=== PATIENT | female | born 1960 | race Hispanic/Latino ===

== ENCOUNTER 2020-09-16 11:53 | Inpatient (IN) | payer OTHER, SELFPAY ==
[2020-09-16] MEDS ORDERED: Fentanyl 100 MCG/2 ML VIAL ONE ×2 (12:06→16:44)
[2020-09-16 12:33] LABS: #Basophils 0.1 thou/uL (0.0-0.2); #Eosinphils 0.1 thou/uL (0.0-0.7); #Lymphocytes 2.3 thou/uL (1.20-3.40); #Monocytes 0.5 thou/uL (0.11-0.59); #Neutrophils 5.4 thou/uL (1.40-6.50); %Eosinophils 1.2 % (0.0-10.0); %Lymphocytes 27.5 % (21.0-51.0); %Monocytes 5.8 % (0.0-10.0); %Neutrophils 64.5 % (42.0-75.0); Hemoglobin 12.5 g/dL (12.0-16.0); Mean Corpuscular HGB CONC 32.4 g/dL (32.0-36.0); Mean Corpuscular Hemoglobin 29.4 pg (27.0-31.0); Mean Platelet Volume 7.2 fL (7.4-10.4); Platelet Count 314 thou/uL (130-400); Red Blood Cell (RBC) Count 4.23 mill/uL (4.20-5.40); White Blood Cell (WBC) Count 8.4 thou/uL (4.8-10.8)
[2020-09-16] MEDS ORDERED: Lorazepam 2 MG/ML VIAL ONE (12:39)
[2020-09-16 12:47] LABS: PTT 31.2 sec (22.9-36.1); Prothrombin Time 12.8 sec (12.0-14.7)
[2020-09-16 13:02] LABS: ALT (SGPT) 10 U/L (8-55); AST (SGOT) 18 U/L (5-34); Albumin 3.7 g/dL (3.5-5.0); Alkaline Phosphatase 108 U/L (40-110); Anion Gap 8 mmol/L (10-20); BUN (Urea Nitrogen) 20 mg/dL (9.8-20.1); Bilirubin, Total 0.2 mg/dL (0.2-1.2); Calc. Creatinine Clearance 0 mL/min (70-130); Calcium 9.6 mg/dL (7.8-10.44); Carbon Dioxide 28 mmol/L (22-29); Chloride 105 mmol/L (98-107); Globulin 3.4 g/dL (2.4-3.5); Glucose 140 mg/dL (70-105); Potassium 3.9 mmol/L (3.5-5.1); Protein, Total 7.1 g/dL (6.0-8.3); Sodium 137 mmol/L (136-145)
[2020-09-16] MEDS ORDERED: Ondansetron PF 4 MG/2 ML Vial IVP PRN (13:05)
[2020-09-16] MEDS ORDERED: Morphine 4 MG/ML VIAL SLOW IVP PRN (13:05)
[2020-09-16] MEDS ORDERED: Ondansetron ODT 4 MG TAB PO PRN (13:05)
[2020-09-16] MEDS ORDERED: CEFAZOLIN 2 GM in Premix Bag 1 BAG IVPB SCH (13:15)
[2020-09-16] MEDS ORDERED: Morphine 4 MG/ML VIAL ONE ×2 (13:20→14:01)
[2020-09-16 14:28] LABS: SARS-CoV-2 NAA Rapid Test Not Detected (NotDetected)
[2020-09-16 16:49] LABS: Bilirubin Negative (Negative); Blood, Urine Negative (Negative); Clarity Clear (Clear); Glucose, Urine (Dipstick) Normal (Negative); Ketone, Urine Negative (Negative); Leukocyte Negative Leu/uL (Negative); Nitrite Negative (Negative); Protein, Urine (Dipstick) Negative (Neg-Trace); Specific Gravity, Urine 1.019 (1.002-1.036); Urobilinogen Normal mg/dL (Less than 2); pH, Urine 6.5 (5.0-9.0)
[2020-09-16] MEDS ORDERED: Dexamethasone 20 MG/5 ML VIAL ONE (17:00)
[2020-09-16] MEDS ORDERED: Ondansetron PF 4 MG/2 ML Vial ONE (17:00)
[2020-09-16] MEDS ORDERED: Ketorolac Tromethamine 30 MG/ML VIAL ONE (17:00)
[2020-09-16] MEDS ORDERED: Lidocaine 1% PF 5 ML VIAL ONE (17:00)
[2020-09-16] MEDS ORDERED: PROPOFOL 200 MG/20 ML VIAL ONE (17:00)
[2020-09-16] MEDS ORDERED: Meperidine HCl/PF 25 MG/ML VIAL SLOW IVP PRN ×2 (18:14)
[2020-09-16] MEDS ORDERED: HYDROmorphone 2 MG/ML VIAL SLOW IVP PRN (18:14)
[2020-09-16] MEDS ORDERED: Promethazine HCl 25 MG/ML VIAL IM PRN (18:14)
[2020-09-16] MEDS ORDERED: Promethazine HCl 25 MG/ML VIAL IVPB PRN (18:14)
[2020-09-16] MEDS ORDERED: Ondansetron HCl/PF 4 MG/2 ML Vial IVP PRN (18:14)
[2020-09-16] MEDS ORDERED: Morphine Sulfate 2 MG/ML SYRINGE SLOW IVP PRN (18:14)
[2020-09-16] MEDS ORDERED: PACU-Morphine 4MG/ML VIAL SLOW IVP PRN (18:14)
[2020-09-16] MEDS ORDERED: Meperidine HCl/PF 25 MG/ML VIAL ONE (18:16)
[2020-09-16] MEDS ORDERED: HYDROmorphone 2 MG/ML VIAL ONE (18:17)
[2020-09-16] MEDS: Gabapentin 300 MG CAP PO SCH ×3 (20:09→20:42)
[2020-09-16] MEDS: Senokot S 8.6-50 MG TAB PO SCH (20:10)
[2020-09-16] MEDS: Sodium Chloride 0.9% 1,000 ML IV SCH ×2 (20:27→20:28)
[2020-09-16] MEDS: traMADol HCl 50 MG TAB PO SCH (20:41)
[2020-09-16] MEDS: Acetaminophen 500 MG TAB PO SCH (20:41)
[2020-09-16 20:51] VITALS: BMI 37.7
[2020-09-16] MEDS ORDERED: Famotidine/PF 20 mg/2ml Vial SLOW IVP SCH (21:00)
[2020-09-16] MEDS: CEFAZOLIN 2 GM in Premix Bag 1 BAG IVPB SCH (21:57)
[2020-09-17] MEDS: Acetaminophen 500 MG TAB PO SCH ×5 (00:21→23:43)
[2020-09-17] MEDS: traMADol HCl 50 MG TAB PO SCH ×5 (00:23→23:42)
[2020-09-17 04:20] LABS: #Lymphocytes 1.3 thou/uL (1.20-3.40); #Monocytes 0.3 thou/uL (0.11-0.59); #Neutrophils 5.8 thou/uL (1.40-6.50); %Basophils 0.3 % (0.0-1.0); %Eosinophils 0.1 % (0.0-10.0); %Lymphocytes 16.8 % (21.0-51.0); %Monocytes 4.2 % (0.0-10.0); %Neutrophils 78.6 % (42.0-75.0); Hemoglobin 10.6 g/dL (12.0-16.0); Mean Corpuscular HGB CONC 32.8 g/dL (32.0-36.0); Mean Corpuscular Hemoglobin 30.3 pg (27.0-31.0); Mean Corpuscular Volume 92.2 fL (78.0-98.0); Mean Platelet Volume 6.9 fL (7.4-10.4); Platelet Count 252 thou/uL (130-400); RBC Distribution Width 11.9 % (11.5-14.5); Red Blood Cell (RBC) Count 3.51 mill/uL (4.20-5.40); White Blood Cell (WBC) Count 7.4 thou/uL (4.8-10.8)
[2020-09-17 04:38] LABS: Anion Gap 10 mmol/L (10-20); BUN (Urea Nitrogen) 14 mg/dL (9.8-20.1); CK (CPK) 183 U/L (29-168); Calc. Creatinine Clearance 107 mL/min (70-130); Calcium 8.6 mg/dL (7.8-10.44); Carbon Dioxide 23 mmol/L (22-29); Chloride 109 mmol/L (98-107); Glucose 160 mg/dL (70-105); Magnesium 1.9 mg/dL (1.6-2.6); Potassium 4.4 mmol/L (3.5-5.1); Sodium 138 mmol/L (136-145)
[2020-09-17] MEDS: CEFAZOLIN 2 GM in Premix Bag 1 BAG IVPB SCH ×2 (05:56→14:33)
[2020-09-17] MEDS ORDERED: Magnesium 2 GM/50 ML 2 GM in Premix Bag 1 BAG IVPB SCH (09:00)
[2020-09-17] MEDS: Gabapentin 300 MG CAP PO SCH ×3 (09:41→21:32)
[2020-09-17] MEDS: Senokot S 8.6-50 MG TAB PO SCH ×2 (09:41→21:32)
[2020-09-17] MEDS: Famotidine 20 MG TAB PO SCH ×2 (09:41→21:41)
[2020-09-17] MEDS: Enoxaparin Sodium 40 MG/0.4 ML SYRINGE SC SCH (09:43)
[2020-09-17] MEDS: Polyethylene Glycol 3350 17 GM Packet PO SCH (09:46)
[2020-09-18] MEDS: Acetaminophen 500 MG TAB PO SCH ×2 (05:44→13:04)
[2020-09-18] MEDS: traMADol HCl 50 MG TAB PO SCH ×2 (05:45→13:05)
[2020-09-18] MEDS: Famotidine 20 MG TAB PO SCH ×2 (08:38→21:28)
[2020-09-18] MEDS: Polyethylene Glycol 3350 17 GM Packet PO SCH (08:38)
[2020-09-18] MEDS: Enoxaparin Sodium 40 MG/0.4 ML SYRINGE SC SCH (08:38)
[2020-09-18] MEDS: Senokot S 8.6-50 MG TAB PO SCH ×2 (08:38→21:28)
[2020-09-18] MEDS: Ibuprofen 600 MG TAB PO PRN ×2 (08:39→21:28)
[2020-09-18] MEDS: Gabapentin 300 MG CAP PO SCH (08:39)
[2020-09-18] MEDS ORDERED: traMADol HCl 50 MG TAB PO PRN (14:02)
[2020-09-18] MEDS ORDERED: Gabapentin 300 MG CAP PO SCH (15:00)
[2020-09-18] MEDS: Acetaminophen 500 MG TAB PO PRN (19:05)
[2020-09-18] MEDS: traMADol HCl 50 MG TAB PO PRN (19:06)
[2020-09-19] MEDS: Acetaminophen 500 MG TAB PO PRN (00:55)
[2020-09-19] MEDS: Polyethylene Glycol 3350 17 GM Packet PO SCH (08:32)
[2020-09-19] MEDS: Calcium Carbonate 600 MG + Vit D TAB PO SCH ×2 (08:32→16:39)
[2020-09-19] MEDS: Senokot S 8.6-50 MG TAB PO SCH ×2 (08:32→21:40)
[2020-09-19] MEDS: Enoxaparin Sodium 40 MG/0.4 ML SYRINGE SC SCH (08:32)
[2020-09-19] MEDS: Cyclobenzaprine 10 MG TAB PO PRN ×2 (09:29→21:40)
[2020-09-19] MEDS: Acetaminophen 500 MG TAB PO SCH ×3 (09:29→21:40)
[2020-09-19] MEDS: traMADol HCl 50 MG TAB PO SCH ×2 (11:26→17:51)
[2020-09-19] MEDS ORDERED: Calcium Carbonate 500 MG ChewTAB PO PRN (16:01)
[2020-09-20] MEDS: traMADol HCl 50 MG TAB PO SCH ×4 (02:33→19:01)
[2020-09-20] MEDS: Acetaminophen 500 MG TAB PO SCH ×4 (05:18→22:19)
[2020-09-20] MEDS: Ascorbic Acid 500 mg Chewable Tablet PO SCH ×2 (08:23→22:23)
[2020-09-20] MEDS: Calcium Carbonate 600 MG + Vit D TAB PO SCH ×2 (08:23→19:01)
[2020-09-20] MEDS: Senokot S 8.6-50 MG TAB PO SCH ×2 (08:23→22:23)
[2020-09-20] MEDS: Ferrous Sulfate 325 MG TAB PO SCH ×2 (08:23→19:01)
[2020-09-20] MEDS: Polyethylene Glycol 3350 17 GM Packet PO SCH (08:24)
[2020-09-20] MEDS: Enoxaparin Sodium 40 MG/0.4 ML SYRINGE SC SCH (08:24)
[2020-09-20] MEDS: traMADol HCl 50 MG TAB PO PRN (15:00)
[2020-09-20] MEDS: Ibuprofen 600 MG TAB PO PRN (15:02)
[2020-09-21] MEDS: traMADol HCl 50 MG TAB PO SCH ×4 (01:06→20:27)
[2020-09-21 05:10] LABS: #Eosinphils 0.4 thou/uL (0.0-0.7); #Lymphocytes 3.1 thou/uL (1.20-3.40); #Neutrophils 4.4 thou/uL (1.40-6.50); %Basophils 0.4 % (0.0-1.0); %Eosinophils 4.3 % (0.0-10.0); %Lymphocytes 34.6 % (21.0-51.0); %Neutrophils 49.7 % (42.0-75.0); Hemoglobin 10.3 g/dL (12.0-16.0); Mean Corpuscular Hemoglobin 29.5 pg (27.0-31.0); Platelet Count 316 thou/uL (130-400); RBC Distribution Width 12.6 % (11.5-14.5); Red Blood Cell (RBC) Count 3.51 mill/uL (4.20-5.40); White Blood Cell (WBC) Count 8.9 thou/uL (4.8-10.8)
[2020-09-21] MEDS: Acetaminophen 500 MG TAB PO SCH ×4 (05:16→22:38)
[2020-09-21 05:31] LABS: Anion Gap 9 mmol/L (10-20); BUN (Urea Nitrogen) 18 mg/dL (9.8-20.1); Calc. Creatinine Clearance 100 mL/min (70-130); Calcium 9.3 mg/dL (7.8-10.44); Carbon Dioxide 28 mmol/L (22-29); Chloride 104 mmol/L (98-107); Glucose 109 mg/dL (70-105); Phosphorus 3.8 mg/dL (2.3-4.7); Potassium 4.1 mmol/L (3.5-5.1); Sodium 137 mmol/L (136-145)
[2020-09-21] MEDS: Polyethylene Glycol 3350 17 GM Packet PO SCH (09:37)
[2020-09-21] MEDS: Ferrous Sulfate 325 MG TAB PO SCH ×2 (09:37→16:26)
[2020-09-21] MEDS: Enoxaparin Sodium 40 MG/0.4 ML SYRINGE SC SCH (09:37)
[2020-09-21] MEDS: Ascorbic Acid 500 mg Chewable Tablet PO SCH ×2 (09:37→20:39)
[2020-09-21] MEDS: Calcium Carbonate 600 MG + Vit D TAB PO SCH ×2 (09:37→16:26)
[2020-09-21] MEDS: Cholecalciferol (Vitamin D3) 400 UNITS TAB PO SCH (09:37)
[2020-09-21] MEDS: Senokot S 8.6-50 MG TAB PO SCH ×2 (09:37→22:39)
[2020-09-21] MEDS: Ibuprofen 600 MG TAB PO PRN (16:24)
[2020-09-21] MEDS: Melatonin 3 MG TAB PO SCH (20:39)
[2020-09-22] MEDS: traMADol HCl 50 MG TAB PO SCH ×4 (01:58→18:44)
[2020-09-22] MEDS: Acetaminophen 500 MG TAB PO SCH ×4 (04:12→22:30)
[2020-09-22] MEDS: Cholecalciferol (Vitamin D3) 400 UNITS TAB PO SCH (08:30)
[2020-09-22] MEDS: Ferrous Sulfate 325 MG TAB PO SCH ×3 (08:30→20:30)
[2020-09-22] MEDS: Ascorbic Acid 500 mg Chewable Tablet PO SCH ×2 (08:30→20:29)
[2020-09-22] MEDS: Calcium Carbonate 600 MG + Vit D TAB PO SCH ×2 (08:31→18:28)
[2020-09-22] MEDS: Enoxaparin Sodium 40 MG/0.4 ML SYRINGE SC SCH (08:31)
[2020-09-22] MEDS: Polyethylene Glycol 3350 17 GM Packet PO SCH (08:35)
[2020-09-22] MEDS: Senokot S 8.6-50 MG TAB PO SCH ×2 (08:36→22:30)
[2020-09-22] MEDS: Melatonin 3 MG TAB PO SCH (20:29)
[2020-09-23] MEDS: traMADol HCl 50 MG TAB PO SCH ×5 (00:36→23:30)
[2020-09-23] MEDS: Acetaminophen 500 MG TAB PO SCH ×4 (04:41→21:47)
[2020-09-23] MEDS: Cholecalciferol (Vitamin D3) 400 UNITS TAB PO SCH (08:12)
[2020-09-23] MEDS: Ascorbic Acid 500 mg Chewable Tablet PO SCH ×2 (08:12→21:49)
[2020-09-23] MEDS: Calcium Carbonate 600 MG + Vit D TAB PO SCH ×2 (08:13→17:17)
[2020-09-23] MEDS: Ferrous Sulfate 325 MG TAB PO SCH ×2 (08:13→21:49)
[2020-09-23] MEDS: Enoxaparin Sodium 40 MG/0.4 ML SYRINGE SC SCH (08:14)
[2020-09-23] MEDS: Senokot S 8.6-50 MG TAB PO SCH ×2 (09:54→21:50)
[2020-09-23] MEDS: Polyethylene Glycol 3350 17 GM Packet PO SCH (09:54)
[2020-09-23] MEDS: Melatonin 3 MG TAB PO SCH (21:50)
[2020-09-24] MEDS: traMADol HCl 50 MG TAB PO SCH ×3 (05:08→23:54)
[2020-09-24] MEDS: Acetaminophen 500 MG TAB PO SCH ×4 (05:08→20:32)
[2020-09-24] MEDS: Calcium Carbonate 600 MG + Vit D TAB PO SCH ×2 (10:43→17:52)
[2020-09-24] MEDS: Ascorbic Acid 500 mg Chewable Tablet PO SCH ×2 (10:44→20:32)
[2020-09-24] MEDS: Cholecalciferol (Vitamin D3) 400 UNITS TAB PO SCH (10:44)
[2020-09-24] MEDS: Polyethylene Glycol 3350 17 GM Packet PO SCH (10:45)
[2020-09-24] MEDS: Senokot S 8.6-50 MG TAB PO SCH ×2 (10:45→20:37)
[2020-09-24] MEDS: Ferrous Sulfate 325 MG TAB PO SCH ×2 (10:45→20:32)
[2020-09-24] MEDS: Enoxaparin Sodium 40 MG/0.4 ML SYRINGE SC SCH (10:45)
[2020-09-24] MEDS ORDERED: Fentanyl 100 MCG/2 ML VIAL ONE ×4 (11:37→15:52)
[2020-09-24] MEDS ORDERED: Midazolam HCl 2 mg/2 ml Vial ONE (11:37)
[2020-09-24] MEDS ORDERED: Lidocaine 1% PF 5 ML VIAL ONE (12:22)
[2020-09-24] MEDS ORDERED: Bupivacaine HCl 0.5%/Epinephrine 1:200,000/PF 30 ml Vial ONE (12:22)
[2020-09-24] MEDS ORDERED: Dexamethasone 20 MG/5 ML VIAL ONE (12:22)
[2020-09-24] MEDS ORDERED: Ketorolac Tromethamine 30 MG/ML VIAL ONE (12:22)
[2020-09-24] MEDS ORDERED: PROPOFOL 200 MG/20 ML VIAL ONE (12:22)
[2020-09-24] MEDS ORDERED: Ondansetron PF 4 MG/2 ML Vial ONE (12:22)
[2020-09-24] MEDS ORDERED: HYDROcodone/Acetaminophen 5/325 mg Tablet PO PRN ×3 (12:30→16:28)
[2020-09-24] MEDS ORDERED: Ondansetron PF 4 MG/2 ML Vial IVP PRN (12:30)
[2020-09-24] MEDS ORDERED: traMADol HCl 50 MG TAB PO PRN (12:30)
[2020-09-24] MEDS ORDERED: Ropivacaine 0.2% 550 ML 550 ML NERVE BLCK SCH (12:30)
[2020-09-24] MEDS ORDERED: Promethazine HCl 25 MG/ML VIAL IM PRN ×2 (12:30→15:08)
[2020-09-24] MEDS ORDERED: Zolpidem Tartrate 5 MG TAB PO PRN (12:30)
[2020-09-24] MEDS ORDERED: CEFAZOLIN 2 GM in Premix Bag 1 BAG IVPB SCH (15:00)
[2020-09-24] MEDS ORDERED: Promethazine HCl 25 MG/ML VIAL IVPB PRN (15:08)
[2020-09-24] MEDS ORDERED: HYDROmorphone 2 MG/ML VIAL SLOW IVP PRN (15:08)
[2020-09-24] MEDS: CEFAZOLIN 2 GM in Premix Bag 1 BAG IVPB SCH ×2 (15:38→21:24)
[2020-09-24] MEDS: traMADol HCl 50 MG TAB PO PRN (16:51)
[2020-09-24] MEDS: Cyclobenzaprine 10 MG TAB PO PRN (19:10)
[2020-09-24] MEDS ORDERED: Morphine 2 MG/ML VIAL SLOW IVP PRN (20:13)
[2020-09-24] MEDS ORDERED: Morphine 4 MG/ML VIAL ONE (20:20)
[2020-09-24] MEDS: Melatonin 3 MG TAB PO SCH (20:32)
[2020-09-24] MEDS ORDERED: Gabapentin 300 MG CAP PO SCH (21:00)
[2020-09-24] MEDS: Ibuprofen 200 MG TAB PO SCH (23:56)
[2020-09-25] MEDS: Acetaminophen 500 MG TAB PO SCH ×4 (03:14→20:27)
[2020-09-25] MEDS: Ibuprofen 200 MG TAB PO SCH ×4 (05:17→23:50)
[2020-09-25] MEDS: traMADol HCl 50 MG TAB PO SCH ×4 (05:17→23:50)
[2020-09-25 05:55] LABS: #Basophils 0.1 thou/uL (0.0-0.2); #Lymphocytes 1.9 thou/uL (1.20-3.40); #Monocytes 1.2 thou/uL (0.11-0.59); #Neutrophils 10.7 thou/uL (1.40-6.50); %Basophils 0.6 % (0.0-1.0); %Eosinophils 0.2 % (0.0-10.0); %Lymphocytes 13.4 % (21.0-51.0); %Monocytes 8.6 % (0.0-10.0); %Neutrophils 77.1 % (42.0-75.0); Hemoglobin 9.7 g/dL (12.0-16.0); Mean Corpuscular HGB CONC 32.3 g/dL (32.0-36.0); Mean Corpuscular Hemoglobin 29.2 pg (27.0-31.0); Mean Corpuscular Volume 90.4 fL (78.0-98.0); Mean Platelet Volume 6.7 fL (7.4-10.4); Platelet Count 386 thou/uL (130-400); RBC Distribution Width 12.3 % (11.5-14.5); Red Blood Cell (RBC) Count 3.32 mill/uL (4.20-5.40); White Blood Cell (WBC) Count 13.9 thou/uL (4.8-10.8)
[2020-09-25] MEDS ORDERED: Pantoprazole 40 MG GRANULES PACKET PO SCH (09:00)
[2020-09-25] MEDS ORDERED: Hydrocortisone Sod Succ/PF 100 mg/2 ml Vial IVP SCH (10:00)
[2020-09-25] MEDS: Calcium Carbonate 600 MG + Vit D TAB PO SCH ×2 (11:18→16:51)
[2020-09-25] MEDS: Ascorbic Acid 500 mg Chewable Tablet PO SCH ×2 (11:19→20:27)
[2020-09-25] MEDS: Cholecalciferol (Vitamin D3) 400 UNITS TAB PO SCH (11:19)
[2020-09-25] MEDS: Ferrous Sulfate 325 MG TAB PO SCH ×2 (11:19→20:45)
[2020-09-25] MEDS: Enoxaparin Sodium 40 MG/0.4 ML SYRINGE SC SCH (11:21)
[2020-09-25] MEDS: Pregabalin 50 MG CAP PO SCH ×2 (11:22→20:26)
[2020-09-25] MEDS: Senokot S 8.6-50 MG TAB PO SCH ×2 (11:23→20:45)
[2020-09-25] MEDS: Polyethylene Glycol 3350 17 GM Packet PO SCH (11:23)
[2020-09-25] MEDS: Hydrocortisone Sod Succ/PF 100 mg/2 ml Vial IVP SCH ×2 (11:24→18:35)
[2020-09-25] MEDS: traMADol HCl 50 MG TAB PO PRN (18:31)
[2020-09-25] MEDS: Melatonin 3 MG TAB PO SCH (20:27)
[2020-09-26] MEDS: Hydrocortisone Sod Succ/PF 100 mg/2 ml Vial IVP SCH ×3 (02:46→18:41)
[2020-09-26] MEDS: Acetaminophen 500 MG TAB PO SCH ×4 (02:49→22:05)
[2020-09-26] MEDS: Ibuprofen 200 MG TAB PO SCH (06:45)
[2020-09-26] MEDS: traMADol HCl 50 MG TAB PO SCH ×4 (06:45→23:49)
[2020-09-26] MEDS: Enoxaparin Sodium 40 MG/0.4 ML SYRINGE SC SCH (09:43)
[2020-09-26] MEDS: Ferrous Sulfate 325 MG TAB PO SCH ×2 (09:43→22:03)
[2020-09-26] MEDS: Pregabalin 50 MG CAP PO SCH ×2 (09:44→22:03)
[2020-09-26] MEDS: Ascorbic Acid 500 mg Chewable Tablet PO SCH ×2 (09:46→22:03)
[2020-09-26] MEDS: Calcium Carbonate 600 MG + Vit D TAB PO SCH ×2 (09:46→18:41)
[2020-09-26] MEDS: Cholecalciferol (Vitamin D3) 400 UNITS TAB PO SCH (09:47)
[2020-09-26] MEDS: Senokot S 8.6-50 MG TAB PO SCH ×2 (09:54→22:08)
[2020-09-26] MEDS: Polyethylene Glycol 3350 17 GM Packet PO SCH (09:54)
[2020-09-26] MEDS: traMADol HCl 50 MG TAB PO PRN (15:38)
[2020-09-26] MEDS: Melatonin 3 MG TAB PO SCH (22:05)
[2020-09-27] MEDS: Hydrocortisone Sod Succ/PF 100 mg/2 ml Vial IVP SCH ×3 (03:33→17:03)
[2020-09-27] MEDS: Acetaminophen 500 MG TAB PO SCH ×4 (03:37→20:39)
[2020-09-27] MEDS: traMADol HCl 50 MG TAB PO SCH ×3 (06:04→17:04)
[2020-09-27] MEDS: Calcium Carbonate 600 MG + Vit D TAB PO SCH ×2 (09:11→17:03)
[2020-09-27] MEDS: Pregabalin 50 MG CAP PO SCH ×2 (09:11→20:39)
[2020-09-27] MEDS: Ascorbic Acid 500 mg Chewable Tablet PO SCH ×2 (09:11→20:38)
[2020-09-27] MEDS: Cholecalciferol (Vitamin D3) 400 UNITS TAB PO SCH (09:11)
[2020-09-27] MEDS: Enoxaparin Sodium 40 MG/0.4 ML SYRINGE SC SCH (09:14)
[2020-09-27] MEDS: Ferrous Sulfate 325 MG TAB PO SCH ×2 (09:14→20:38)
[2020-09-27] MEDS: Senokot S 8.6-50 MG TAB PO SCH ×2 (09:14→20:40)
[2020-09-27] MEDS: Polyethylene Glycol 3350 17 GM Packet PO SCH (09:14)
[2020-09-27] MEDS: Melatonin 3 MG TAB PO SCH (20:37)
[2020-09-28] MEDS: traMADol HCl 50 MG TAB PO SCH ×5 (00:18→23:08)
[2020-09-28] MEDS: Hydrocortisone Sod Succ/PF 100 mg/2 ml Vial IVP SCH ×3 (02:13→17:59)
[2020-09-28] MEDS: Acetaminophen 500 MG TAB PO SCH ×4 (02:14→21:47)
[2020-09-28] MEDS: Calcium Carbonate 600 MG + Vit D TAB PO SCH ×2 (09:03→17:59)
[2020-09-28] MEDS: Pregabalin 50 MG CAP PO SCH ×2 (09:03→21:48)
[2020-09-28] MEDS: Ascorbic Acid 500 mg Chewable Tablet PO SCH ×2 (09:03→21:48)
[2020-09-28] MEDS: Cholecalciferol (Vitamin D3) 400 UNITS TAB PO SCH (09:03)
[2020-09-28] MEDS: Ferrous Sulfate 325 MG TAB PO SCH ×2 (09:06→21:47)
[2020-09-28] MEDS: Enoxaparin Sodium 40 MG/0.4 ML SYRINGE SC SCH (09:06)
[2020-09-28] MEDS: Polyethylene Glycol 3350 17 GM Packet PO SCH (09:09)
[2020-09-28] MEDS: Senokot S 8.6-50 MG TAB PO SCH ×2 (09:09→21:44)
[2020-09-28] MEDS: Melatonin 3 MG TAB PO SCH (21:47)
[2020-09-29] MEDS: Hydrocortisone Sod Succ/PF 100 mg/2 ml Vial IVP SCH (01:33)
[2020-09-29] MEDS: Acetaminophen 500 MG TAB PO SCH ×4 (02:05→20:41)
[2020-09-29] MEDS: traMADol HCl 50 MG TAB PO SCH ×3 (06:06→18:24)
[2020-09-29] MEDS: Pregabalin 50 MG CAP PO SCH ×2 (09:03→20:41)
[2020-09-29] MEDS: Ascorbic Acid 500 mg Chewable Tablet PO SCH ×2 (09:03→20:40)
[2020-09-29] MEDS: Cholecalciferol (Vitamin D3) 400 UNITS TAB PO SCH (09:03)
[2020-09-29] MEDS: Enoxaparin Sodium 40 MG/0.4 ML SYRINGE SC SCH (09:04)
[2020-09-29] MEDS: Calcium Carbonate 600 MG + Vit D TAB PO SCH ×2 (09:04→18:24)
[2020-09-29] MEDS: Polyethylene Glycol 3350 17 GM Packet PO SCH ×2 (10:59→12:19)
[2020-09-29] MEDS: Senokot S 8.6-50 MG TAB PO SCH ×2 (10:59→20:41)
[2020-09-29] MEDS: Ferrous Sulfate 325 MG TAB PO SCH ×2 (10:59→20:40)
[2020-09-29] MEDS: Melatonin 3 MG TAB PO SCH (20:40)
[2020-09-30] MEDS: traMADol HCl 50 MG TAB PO SCH ×2 (00:37→05:51)
[2020-09-30] MEDS: Acetaminophen 500 MG TAB PO SCH ×4 (04:17→21:11)
[2020-09-30] MEDS: Pregabalin 50 MG CAP PO SCH ×2 (08:27→20:53)
[2020-09-30] MEDS: Cholecalciferol (Vitamin D3) 400 UNITS TAB PO SCH (08:28)
[2020-09-30] MEDS: Ascorbic Acid 500 mg Chewable Tablet PO SCH ×2 (08:28→20:53)
[2020-09-30] MEDS: Calcium Carbonate 600 MG + Vit D TAB PO SCH ×2 (08:28→18:32)
[2020-09-30] MEDS: Enoxaparin Sodium 40 MG/0.4 ML SYRINGE SC SCH (08:28)
[2020-09-30] MEDS: Senokot S 8.6-50 MG TAB PO SCH ×2 (08:28→21:11)
[2020-09-30] MEDS: Polyethylene Glycol 3350 17 GM Packet PO SCH (08:28)
[2020-09-30] MEDS: Ferrous Sulfate 325 MG TAB PO SCH ×2 (10:25→20:53)
[2020-09-30] MEDS: Ibuprofen 200 MG TAB PO PRN (16:35)
[2020-09-30] MEDS: traMADol HCl 50 MG TAB PO PRN (16:37)
[2020-09-30] MEDS: Cyclobenzaprine 10 MG TAB PO PRN (16:45)
[2020-09-30] MEDS: Melatonin 3 MG TAB PO SCH (20:53)
[2020-10-01] MEDS: Acetaminophen 500 MG TAB PO SCH ×4 (03:05→20:00)
[2020-10-01] MEDS: Ascorbic Acid 500 mg Chewable Tablet PO SCH ×2 (08:47→20:01)
[2020-10-01] MEDS: Cholecalciferol (Vitamin D3) 400 UNITS TAB PO SCH (08:47)
[2020-10-01] MEDS: Ferrous Sulfate 325 MG TAB PO SCH ×2 (08:47→20:01)
[2020-10-01] MEDS: Calcium Carbonate 600 MG + Vit D TAB PO SCH ×2 (08:48→16:21)
[2020-10-01] MEDS: Enoxaparin Sodium 40 MG/0.4 ML SYRINGE SC SCH (08:48)
[2020-10-01] MEDS: Polyethylene Glycol 3350 17 GM Packet PO SCH (08:48)
[2020-10-01] MEDS: Senokot S 8.6-50 MG TAB PO SCH ×2 (08:50→20:01)
[2020-10-01] MEDS: Pregabalin 50 MG CAP PO SCH ×2 (08:50→20:01)
[2020-10-01] MEDS: Cyclobenzaprine 10 MG TAB PO PRN (13:29)
[2020-10-01] MEDS: Ibuprofen 200 MG TAB PO PRN (13:29)
[2020-10-01] MEDS: Melatonin 3 MG TAB PO SCH (20:01)
[2020-10-02] MEDS: Acetaminophen 500 MG TAB PO SCH ×2 (04:14→10:32)
[2020-10-02 08:11] VITALS: TEMP 99.4
[2020-10-02] MEDS: Cholecalciferol (Vitamin D3) 400 UNITS TAB PO SCH (10:21)
[2020-10-02] MEDS: Polyethylene Glycol 3350 17 GM Packet PO SCH (10:21)
[2020-10-02] MEDS: Enoxaparin Sodium 40 MG/0.4 ML SYRINGE SC SCH (10:21)
[2020-10-02] MEDS: Ferrous Sulfate 325 MG TAB PO SCH (10:22)
[2020-10-02] MEDS: Ascorbic Acid 500 mg Chewable Tablet PO SCH (10:22)
[2020-10-02] MEDS: traMADol HCl 50 MG TAB PO PRN (10:22)
[2020-10-02] MEDS: Pregabalin 50 MG CAP PO SCH (10:23)
[2020-10-02] MEDS: Calcium Carbonate 600 MG + Vit D TAB PO SCH (10:23)
[2020-10-02] MEDS: Senokot S 8.6-50 MG TAB PO SCH (10:33)
[2020-10-02 13:08] VITALS: BP 110/76
== END 2020-10-02 15:55 | DRG 493 ==
LOC: ERS 11:53 → ERHOLD 13:05 → SURG B 19:30
PROVIDERS: ADMIT Surgery; ATTEND Surgery
PROC: 0QSH35Z Reposition Left Tibia with External Fixation Device, Percutaneous Approach (ICD-10-PCS; principal; 2020-09-16)
PROC: 0QPH04Z Removal of Internal Fixation Device from Left Tibia, Open Approach (ICD-10-PCS; 2020-09-24)
PROC: 0QSH04Z Reposition Left Tibia with Internal Fixation Device, Open Approach (ICD-10-PCS; 2020-09-24)
DX: S82.142A Displaced bicondylar fracture of left tibia, initial encounter for closed fracture (principal); D62 Acute posthemorrhagic anemia; Z20.822 Contact with and (suspected) exposure to COVID-19; W01.0XXA Fall on same level from slipping, tripping and stumbling without subsequent striking against object, initial encounter; F41.9 Anxiety disorder, unspecified; S40.012A Contusion of left shoulder, initial encounter; S50.12XA Contusion of left forearm, initial encounter
CPT/HCPCS: 29505; 36415; 71045; 76000; 80048; 80053; 81003; 82180; 82306; 82533; 82550; 83735; 84100; 85025; 85610; 85730; 87086; 93005; 96374; 96375; A4306; C1713; G0390; J0690; J1100; J1170; J1650; J1720; J1885; J2060; J2175; J2250; J2270; J2405; J2704; J2795; J3010; J3475; Q0162; S0028; U0002; U0005

== ENCOUNTER 2021-05-21 12:01 | Outpatient (CLI) | payer OTHER | END 2021-05-21 12:02 | disposition home or self-care (01) | LOC: ULT 12:01 → EDSTATUS 16:00 | PROVIDERS: ATTEND Orthopaedic Surgery | DX: S82.142A Displaced bicondylar fracture of left tibia, initial encounter for closed fracture (principal) ==

== ENCOUNTER 2021-07-09 11:03 | Outpatient (CLI) | payer SELFPAY ==
[2021-07-09 21:33] LABS: SARS-CoV-2 PCR by NAA Not Detected (NotDetected)
== END 2021-07-09 11:04 | disposition home or self-care (01) ==
LOC: LABBT 11:03
PROVIDERS: ATTEND Orthopaedic Surgery
DX: T85.848A Pain due to other internal prosthetic devices, implants and grafts, initial encounter (principal); Z20.822 Contact with and (suspected) exposure to COVID-19
CPT/HCPCS: U0003; U0005

== ENCOUNTER 2021-07-14 10:07 | Observation (INO) | payer OTHER ==
[2021-07-14] MEDS ORDERED: fentaNYL Citrate/PF 100 MCG/2 ML SYRINGE ONE (11:46)
[2021-07-14] MEDS ORDERED: Bupivacaine 0.25% HCL 30 ML VIAL ONE (12:27)
[2021-07-14] MEDS ORDERED: CEFAZOLIN 2 GM VIAL ONE (12:27)
[2021-07-14] MEDS ORDERED: Bupivacaine PF 0.5% 30 ML VIAL ONE (12:33)
[2021-07-14] MEDS ORDERED: Sodium Chloride 0.9% 100 ML ONE (12:33)
[2021-07-14] MEDS ORDERED: Dexamethasone 20 MG/5 ML VIAL ONE (12:50)
[2021-07-14] MEDS ORDERED: PROPOFOL 200 MG/20 ML VIAL ONE (12:50)
[2021-07-14] MEDS ORDERED: Ondansetron PF 4 MG/2 ML Vial ONE (12:50)
[2021-07-14] MEDS ORDERED: PHENYLEPHRINE-NS 100 MCG/ML 10 ML SYRINGE ONE (12:50)
[2021-07-14] MEDS ORDERED: Lidocaine 1% PF 5 ML VIAL ONE (12:50)
[2021-07-14] MEDS ORDERED: Ketorolac Tromethamine 30 MG/ML VIAL ONE (12:50)
[2021-07-14] MEDS ORDERED: Fentanyl 100 MCG/2 ML VIAL SLOW IVP PRN (14:16)
[2021-07-14] MEDS ORDERED: Ondansetron PF 4 MG/2 ML Vial IVP PRN (14:16)
[2021-07-14] MEDS ORDERED: Communication Order-Pharmacy FS SCH (14:30)
[2021-07-14] MEDS ORDERED: Fentanyl 100 MCG/2 ML VIAL ONE (14:32)
[2021-07-14 16:07] VITALS: BMI 37.7
[2021-07-14] MEDS: traMADol HCl 50 MG TAB PO PRN (18:30)
[2021-07-14] MEDS: Acetaminophen 325 MG TAB PO PRN (20:02)
[2021-07-14] MEDS: Aspirin 81 mg Enteric Coated Tablet PO SCH (20:03)
[2021-07-14] MEDS: CEFAZOLIN 2 GM in Sodium Chloride 0.9% 100 ML IVPB SCH (20:03)
[2021-07-15] MEDS: CEFAZOLIN 2 GM in Sodium Chloride 0.9% 100 ML IVPB SCH ×3 (03:52→20:38)
[2021-07-15] MEDS: HYDROcodone/Acetaminophen 10/325 mg Tablet PO PRN (05:01)
[2021-07-15 06:17] LABS: #Lymphocytes 1.3 thou/uL (1.20-3.40); #Monocytes 0.4 thou/uL (0.11-0.59); #Neutrophils 10.2 thou/uL (1.40-6.50); %Basophils 0.1 % (0.0-1.0); %Eosinophils 0.1 % (0.0-10.0); %Lymphocytes 11.2 % (21.0-51.0); %Monocytes 3.5 % (0.0-10.0); %Neutrophils 85.1 % (42.0-75.0); Hemoglobin 12.2 g/dL (12.0-16.0); Mean Corpuscular HGB CONC 33.2 g/dL (32.0-36.0); Mean Corpuscular Hemoglobin 29.4 pg (27.0-31.0); Mean Corpuscular Volume 88.4 fL (78.0-98.0); Mean Platelet Volume 6.2 fL (7.4-10.4); Platelet Count 335 thou/uL (130-400); RBC Distribution Width 15.9 % (11.5-14.5); Red Blood Cell (RBC) Count 4.14 mill/uL (4.20-5.40)
[2021-07-15] MEDS: Aspirin 81 mg Enteric Coated Tablet PO SCH ×2 (08:25→20:38)
[2021-07-15] MEDS: traMADol HCl 50 MG TAB PO PRN ×2 (11:45→20:38)
[2021-07-16] MEDS: CEFAZOLIN 2 GM in Sodium Chloride 0.9% 100 ML IVPB SCH ×2 (04:50→11:56)
[2021-07-16 07:50] VITALS: BP 105/68; TEMP 97.8
[2021-07-16] MEDS: Aspirin 81 mg Enteric Coated Tablet PO SCH (08:19)
[2021-07-16] MEDS ORDERED: Amoxicillin/Potassium Clav 875 MG TAB PO SCH (09:00)
[2021-07-16] MEDS: HYDROcodone/Acetaminophen 10/325 mg Tablet PO PRN (09:07)
[2021-07-16] MEDS: Acetaminophen 325 MG TAB PO PRN (14:12)
== END 2021-07-16 15:50 | disposition home or self-care (01) ==
LOC: SDC 10:07 → T4-B 14:19
PROVIDERS: ADMIT Orthopaedic Surgery; ATTEND Orthopaedic Surgery
PROC: 0YP Anatomical Regions, Lower Extremities, Removal (ICD-10-PCS; principal; 2021-07-14)
DX: T84.84XA Pain due to internal orthopedic prosthetic devices, implants and grafts, initial encounter (principal)
CPT/HCPCS: 36415; 76000; 85025; 87070; 87077; 87186; 87205; 96365; 96366; 96376; G0378; J1100; J1885; J2405; J2704; J3010; J3490; S0020

== ENCOUNTER 2022-11-26 07:34 | Outpatient (CLI) | payer OTHER | END 2022-11-26 07:35 | disposition home or self-care (01) | LOC: SCSMRI 07:34 | PROVIDERS: ATTEND Orthopaedic Surgery | DX: T84.623A Infection and inflammatory reaction due to internal fixation device of left tibia, initial encounter (principal); S82.202K Unspecified fracture of shaft of left tibia, subsequent encounter for closed fracture with nonunion ==

== ENCOUNTER 2023-01-04 07:42 | Outpatient (CLI) | payer OTHER | END 2023-01-04 07:43 | disposition home or self-care (01) | LOC: NM 07:42 | PROVIDERS: ATTEND Orthopaedic Surgery | DX: S82.142A Displaced bicondylar fracture of left tibia, initial encounter for closed fracture (principal) | CPT/HCPCS: 78802; A4641; A9521 ==